=== PATIENT | male | born 1935 | race Hispanic/Latino ===

== ENCOUNTER 2016-04-03 15:13 | Outpatient (CLI) | payer MEDICARE, OTHER ==
--- NOTE | 2016-04-09 12:45 | XRay Report ---
Chest 2 views. Findings: The heart and ulnar vessels are normal. Minimal increased markings are seen in the retrocardiac region of the left lower lobe; otherwise the lungs are clear. Post CABG changes are noted. Impression: Possible small left lower lobe infiltrate.
== END 2016-04-03 15:14 | disposition home or self-care (01) ==
LOC: SPVIMAG 15:13
PROVIDERS: ATTEND Internal Medicine
DX: J15.9 Unspecified bacterial pneumonia (principal)
CPT/HCPCS: 71020

== ENCOUNTER 2016-06-06 10:32 | Day surgery (SDC) | payer MEDICARE, OTHER ==
[~2016-06-06 10:32] MED LIST: IOPIDINE OD ONE; IOPIDINE ONE; MYDRIACYL OD ONE; MYDRIACYL ONE; NEOFRIN OD ONE; NEOFRIN ONE
[2016-06-06 11:05] VITALS: BP 104/56
[2016-06-06] MEDS ORDERED: NEOFRIN OD ONE (12:08)
[2016-06-06] MEDS ORDERED: IOPIDINE OD ONE (12:08)
[2016-06-06] MEDS ORDERED: MYDRIACYL OD ONE (12:08)
== END 2016-06-06 10:33 | disposition home or self-care (01) ==
LOC: OR 10:32
PROVIDERS: ATTEND Specialist
DX: H26.491 Other secondary cataract, right eye (principal)

== ENCOUNTER 2016-06-13 11:05 | Day surgery (SDC) | payer MEDICARE, OTHER ==
[~2016-06-13 11:05] MED LIST changes: -IOPIDINE OD ONE; +IOPIDINE OS ONE; -MYDRIACYL OD ONE; +MYDRIACYL OS ONE; -NEOFRIN OD ONE; +NEOFRIN OS ONE
[2016-06-13] MEDS ORDERED: MYDRIACYL OS ONE (11:45)
[2016-06-13] MEDS ORDERED: IOPIDINE OS ONE (11:45)
[2016-06-13] MEDS ORDERED: NEOFRIN OS ONE (11:45)
[2016-06-13 12:02] VITALS: BP 110/60
== END 2016-06-13 12:32 | disposition home or self-care (01) ==
LOC: OR 11:05
PROVIDERS: ATTEND Specialist
DX: H26.492 Other secondary cataract, left eye (principal)

== ENCOUNTER 2016-07-03 06:20 | Day surgery (SDC) | payer MEDICARE, OTHER ==
[2016-07-03 09:52] VITALS: BP 127/64
[2016-07-03 10:57] LABS: Calcium 9.2 mg/dL (8.4-10.2)
[2016-07-03] MEDS ORDERED: RECLAST IV ONE (11:00)
== END 2016-07-03 11:00 | disposition home or self-care (01) ==
LOC: OPU 06:20 → EDSTATUS 06:30 → OPU 11:00
PROVIDERS: ATTEND Specialist
DX: M81.0 Age-related osteoporosis without current pathological fracture (principal)
CPT/HCPCS: 36415; 82310; 82565; 96365; J3489

== ENCOUNTER 2016-10-22 09:41 | Outpatient (CLI) | payer MEDICARE, OTHER ==
--- NOTE | 2016-10-22 10:54 | Mammography Report ---
BILATERAL DIGITAL DIAGNOSTIC MAMMOGRAM with CAD and BILATERAL BREAST ULTRASOUND: 10/22/16 CLINICAL: 80-year-old male with swelling of the upper outer left breast. COMPARISON:None. FINDINGS: Relatively fatty breasts.Mild bilateral subareolar fibroglandular densities. No mass, architectural distortion or suspicious calcifications. Ultrasound of of both breasts (including all four quadrants and the retroareolar area of each breast) was performed and demonstrated minimal subareolar fibroglandular densities. No mass, cyst or shadowing. IMPRESSION: Very mild bilateral gynecomastia.No mass. BI-RADS CATEGORY: 2 -- Benign RECOMMENDATION: Clinical follow-up. COMMENT: Patient follow-up letters are generated by our [employer] application.
== END 2016-10-22 09:42 | disposition home or self-care (01) ==
LOC: SPVWC 09:41
PROVIDERS: ATTEND Surgery
DX: N63 Unspecified lump in breast (principal); N62 Hypertrophy of breast; I11.0 Hypertensive heart disease with heart failure; I50.9 Heart failure, unspecified
CPT/HCPCS: 76641; G0204; 77066

== ENCOUNTER 2017-04-28 07:12 | Day surgery (SDC) | payer MEDICARE, OTHER ==
[~2017-04-28 07:12] MED LIST changes: +ANCEF/STERILE WATER 2 GM/20 ML 2 GM/20 ML SYRINGE IV NR; -IOPIDINE ONE; -IOPIDINE OS ONE; -MYDRIACYL ONE; -MYDRIACYL OS ONE; -NEOFRIN ONE; -NEOFRIN OS ONE
[2017-04-28] MEDS ORDERED: NACL BACTERIOSTATIC INFILTRATI ONE (07:55)
--- NOTE | 2017-04-28 08:12 | Anesthesia Consultation ---
Anesthesia Consult and Med Hx Date of service: 04/28/17 - Airway Anesthetic Teeth Evaluation: Good ROM Head & Neck: Adequate Mental/Hyoid Distance: Adequate Mallampati Class: Class I Intubation Access Assessment: Good - Pulmonary Exam CTA: Yes - Cardiac Exam Cardiac Exam: RRR - Pre-Operative Health Status ASA Pre-Surgery Classification: ASA3 Proposed Anesthetic Plan: General - Pre-Anesthesia Comment Pre-Anesthesia Comments: high cholesterol. arthiritis. 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
--- NOTE | 2017-04-28 08:15 | Anesthesia Day of Surgery ---
Anesthesia Day of Surgery - Day of Surgery Patient Examined: Yes Patient H&P Reviewed: Yes Patient is NPO: Yes Beta Blockers: Yes Cardiac Clearance: Yes
[2017-04-28 08:39] LABS: Basophils % (Auto) 0.7 % (0.0-1.8); Eosinophils # (Auto) 0.2 K/mm3 (0.0-0.4); Eosinophils % (Auto) 3.5 % (0.0-4.3); Hemoglobin 14.7 gm/dl (11.8-15.2); Lymphocytes # (Auto) 1.8 K/mm3 (1.2-5.4); Lymphocytes % (Auto) 27.1 % (13.4-35.0); Mean Corpuscular HGB Conc 35 % (32-34); Mean Corpuscular Hemoglobin 33 pg (28-32); Mean Corpuscular Volume 94 fl (84-94); Monocytes # (Auto) 0.7 K/mm3 (0.0-0.8); Monocytes % (Auto) 10.3 % (0.0-7.3); Platelet Count 132 K/mm3 (140-440); Red Blood Count 4.48 M/mm3 (3.65-5.03); Red Cell Distribution Width 13.5 % (13.2-15.2)
[2017-04-28 08:53] LABS: Calcium 9.1 mg/dL (8.4-10.2)
[2017-04-28] MEDS ORDERED: PEPCID PO NR (09:00)
[2017-04-28] MEDS ORDERED: ANCEF/STERILE WATER 2 GM/20 ML 2 GM/20 ML SYRINGE IV NR (09:00)
[2017-04-28] MEDS ORDERED: NACL 0.9% 1000 ML 1,000 ML IV SCH (09:00)
[2017-04-28] MEDS ORDERED: ZOFRAN ONE (10:40)
[2017-04-28] MEDS ORDERED: SUBLIMAZE ONE (10:41)
[2017-04-28] MEDS ORDERED: DIPRIVAN 10 MG/ML IV ONE (10:41)
[2017-04-28] MEDS ORDERED: GARAMYCIN IV ONE (10:59)
[2017-04-28] MEDS ORDERED: NACL 0.9% IR ONE (10:59)
[2017-04-28] MEDS ORDERED: WATER FOR IRRIG STERILE IR ONE ×2 (10:59)
[2017-04-28] MEDS ORDERED: XYLOCAINE MPF 2% ONE (11:00)
[2017-04-28] MEDS ORDERED: LASIX ONE (11:00)
[2017-04-28] MEDS ORDERED: NEO SYNEPHRINE/NS Syringe(OR USE) IV ONE (11:00)
[2017-04-28] MEDS ORDERED: ePHEDrine SULFATE ONE ×2 (11:16→11:54)
[2017-04-28] MEDS ORDERED: GARAMYCIN ONE (11:38)
--- NOTE | 2017-04-28 12:14 | Post Operative Note ---
Date of procedure: 04/28/17 Pre-op diagnosis: ca prostate Post-op diagnosis: same Findings: as above Procedure: cysto cryo ablation prostate Anesthesia: GETA Surgeon: EMMANUEL DOUGLAS Estimated blood loss: minimal Pathology: none Condition: stable Disposition: PACU
--- NOTE | 2017-04-28 12:16 | Discharge Summary ---
Short Stay Discharge Plan Activity: other (no straining) Weight Bearing Status: Full Weight Bearing Diet: low fat, low salt Wound: open to air, other (ice packs in rr and 24 hrs post op ) Special Instructions: other (inc fluids teach olsen care ) Durable Medical Equipment Needed Upon Discharge: other (olsen) Follow up with: MICHELET DORADO MD [Primary Care Provider] - 7 Days EMMANUEL DOUGLAS MD [Staff Physician] - 7 Days
--- NOTE | 2017-04-28 13:00 | Operative Report ---
PREOPERATIVE DIAGNOSIS: Adenocarcinoma of the prostate localized. POSTOPERATIVE DIAGNOSES: Adenocarcinoma of the prostate localized. PROCEDURE: Cystoscopy, cryoablation of prostate, focusing left lobe. SURGEON: Ajith Bass MD ANESTHESIA: General. FINDINGS: This is a gentleman with prostate cancer. All the options were given to him. His has had cryoablation for her kidney. He now presents for surgery. All risks and complications discussed. DESCRIPTION OF PROCEDURE: The patient brought to the operating room and placed on the operating table. Following induction of anesthesia, placed in lithotomy position, prepped and draped in usual sterile fashion. Baxter catheter was inserted. The ultrasound probe was placed and we had a good image of the prostate. The prostate measured approximately 24-25 grams. Again, we focused on the left lobe. At this point, when the catheter was in, we tested all the probes which were excellent and placed probes 1 and 2 in position. Denonvilliers' fascia was in. There was a good amount of space between the prostate and the rectum. We expected the Denonvilliers' to be a slightly warmer, so we would have to watch the ultrasound because there was ____ space. At this point, external sphincter probe was placed and then probes 5 and 6 and then 3 and 4. Excellent visualization was achieved. The probes were checked in multiple planes and we had to take probes 1 and 2 to 3 cm and the rest to 3.5 cm. At this point, cystoscopy showed no urethral damage, bladder damage. A wire was placed and the warmer which was checked multiple times, was placed in the bladder under ultrasound guidance. At this point, the probes were checked once again and freeze was carried out approximately 8-9 minutes and we watched the ice ball freeze from anterior to posterior without difficulty. Then, dropped to about 9 degrees, but we knew it would be warmer than what we saw because we saw an amazing a well-developed ice ball. At this point, a full flow was carried out. Second freeze was carried in a symmetrical fashion after we rechecked the probes to be sure that it did not migrate. The patient tolerated the procedure well. Pressure dressing was left until there was no bleeding brought to recovery room with a 20-[place]i Baxter. Family notified in stable condition. JOB# [id number] PRINCE/YVONNE
[2017-04-28 14:17] VITALS: BP 159/84
--- NOTE | 2017-04-28 15:25 | Post Anesthesia Evaluation ---
- Post Anesthesia Evaluation Patient Participated: Yes Airway Patent: Yes Stable Respiratory Function: Yes Nausea/Vomiting: No Temp > 96.8F: Yes Pain Manageable: Yes Adequeate Hydration: Yes Anesthesia Complications: No
== END 2017-04-28 15:00 | disposition home or self-care (01) ==
LOC: OR 07:12
PROVIDERS: ATTEND Urology
DX: C61 Malignant neoplasm of prostate (principal); I10 Essential (primary) hypertension; I25.10 Atherosclerotic heart disease of native coronary artery without angina pectoris; I25.2 Old myocardial infarction; I73.9 Peripheral vascular disease, unspecified; J44.9 Chronic obstructive pulmonary disease, unspecified; M19.90 Unspecified osteoarthritis, unspecified site; K21.9 Gastro-esophageal reflux disease without esophagitis; Z90.49 Acquired absence of other specified parts of digestive tract; Z98.890 Other specified postprocedural states; Z95.5 Presence of coronary angioplasty implant and graft; Z85.46 Personal history of malignant neoplasm of prostate; Z90.5 Acquired absence of kidney; Z86.73 Personal history of transient ischemic attack (TIA), and cerebral infarction without residual deficits
CPT/HCPCS: 36415; 55873; 80048; 85025; A4217; C2618; J0690; J1580; J1940; J2370; J2405; J2704; J3010; J7030

== ENCOUNTER 2018-07-10 09:28 | Outpatient (CLI) | payer MEDICARE, OTHER ==
--- NOTE | 2018-07-10 10:26 | XRay Report ---
RIGHT CLAVICLE TWO VIEWS: 07/10/18 09:28:00 CLINICAL: Pain and lump. FINDINGS: The clavicle is intact with no fracture or dislocation.Normal acromioclavicular joint. The sternoclavicular joint is not optimally imaged. Mild glenohumeral joint arthritis and a fixation screw in the humeral head. Normal soft tissues. IMPRESSION: Normal clavicle. Status post rotator cuff repair. Mild glenohumeral joint arthritis.
== END 2018-07-10 09:29 | disposition home or self-care (01) ==
LOC: SPVIMAG 09:28
PROVIDERS: ATTEND Internal Medicine
DX: M19.011 Primary osteoarthritis, right shoulder (principal); E78.5 Hyperlipidemia, unspecified; I10 Essential (primary) hypertension; E78.00 Pure hypercholesterolemia, unspecified; J44.9 Chronic obstructive pulmonary disease, unspecified; K21.9 Gastro-esophageal reflux disease without esophagitis

== ENCOUNTER 2018-10-21 09:50 | Outpatient (CLI) | payer MEDICARE, OTHER ==
--- NOTE | 2018-10-21 12:41 | Cat Scan Report ---
CT ABDOMEN AND PELVIS WITHOUT CONTRAST HISTORY: COLON CANCER SCREENING(V76.51) [employer] COMPARISON: 09/06/2015 TECHNIQUE: Axial CT images were obtained through the abdomen and pelvis without IV contrast. Sagittal and coronal reformatted images. All CT scans at this location are performed using CT dose reduction for ALARA by means of automated exposure control. FINDINGS: CT ABDOMEN: Lung Bases: Chronic interstitial changes are noted at the lung bases. No nodule, infiltrate or pleura l fluid. Heart size is borderline with coronary artery calcifications. Liver: No significant abnormality. Biliary: Cholecystectomy. Spleen: No significant abnormality. Unenlarged. Pancreas: No significant abnormality. Adrenals: No significant abnormality. Kidneys: Stable left nephrectomy changes since the previous exam. The right kidney is normal size and position. A 2.8 x 2.1 cm cyst near the inferior pole of the right kidney appears stable. Minor rim c alcifications are noted in the cyst. The right ureter is normal course and caliber. Lymphatics: No lymphadenopathy. Vasculature: Moderate diffuse aortic and iliac calcifications are noted. No aneurysm. Bowel/Peritoneum: Oral contrast is present in the stomach and small bowel. There is moderate stool th roughout the length of the colon. No obvious colonic mass is identified. No inflammatory changes or o bstruction. Normal appendix. CT PELVIS: : The bladder is unremarkable. No pelvic cyst, mass or adenopathy. Osseous Structures: Mild osteopenia and diffuse degenerative changes throughout the spine are identif ied. No suspicious bony lesion or fracture. Additional Findings: None IMPRESSION: No obvious colonic mass or evidence for metastasis. Stable left nephrectomy changes. Atherosclerotic disease. Cholecystectomy. Osteopenia and degenerative changes in the spine. Signer Name: Charli Ojeda Jr, MD Signed: 10/21/2018 12:37 PM Workstation Name: [id number]
== END 2018-10-21 09:51 | disposition home or self-care (01) ==
LOC: CT 09:50
PROVIDERS: ATTEND Internal Medicine
DX: Z12.11 Encounter for screening for malignant neoplasm of colon (principal); Z85.528 Personal history of other malignant neoplasm of kidney
CPT/HCPCS: 74176

== ENCOUNTER 2019-01-18 11:12 | Outpatient (CLI) | payer MEDICARE, OTHER ==
--- NOTE | 2019-01-18 13:34 | XRay Report ---
CHEST 2 VIEWS INDICATION / CLINICAL INFORMATION: EXERTIONAL DYSPNEA. COMPARISON: Chest x-ray on 04/03/2016 FINDINGS: SUPPORT DEVICES: None. HEART / MEDIASTINUM: Stable postsurgical changes from median sternotomy and CABG. Stable normal heart size. LUNGS / PLEURA: No significant pulmonary or pleural abnormality. No pneumothorax. ADDITIONAL FINDINGS: No significant additional findings. IMPRESSION: 1. No acute findings. No significant change from the prior study. Signer Name: Artemio Sheppard MD Signed: 01/18/2019 1:29 PM Workstation Name: [id number]
== END 2019-01-18 11:13 | disposition home or self-care (01) ==
LOC: SPVIMAG 11:12
PROVIDERS: ATTEND Internal Medicine Cardiovascular Disease
DX: R06.09 Other forms of dyspnea (principal); Z95.1 Presence of aortocoronary bypass graft
CPT/HCPCS: 71046

== ENCOUNTER 2019-01-25 15:23 | Outpatient (CLI) | payer MEDICARE, OTHER ==
--- NOTE | 2019-01-25 16:44 | XRay Report ---
STERNOCLAVICULAR JOINTS 3 VIEWS INDICATION / CLINICAL INFORMATION: ARTHRITIS OF RIGHT STERNOCLAVICULAR JOINT COMPARISON: Chest radiograph 01/18/2019, clavicle radiograph 07/10/2018 FINDINGS: No acute abnormality. Mild to moderate degenerative changes with spurring at the proximal ends of the clavicles. Appearance is unchanged from previous exams. No bony resorption or destructive change is evident. Signer Name: Young Soria MD Signed: 01/25/2019 4:40 PM Workstation Name: [id number]
== END 2019-01-25 15:24 | disposition home or self-care (01) ==
LOC: SPVIMAG 15:23
PROVIDERS: ATTEND Internal Medicine
DX: M19.011 Primary osteoarthritis, right shoulder (principal)
CPT/HCPCS: 71130

== ENCOUNTER 2019-02-26 14:29 | Outpatient (CLI) | payer MEDICARE, OTHER ==
--- NOTE | 2019-02-26 15:36 | XRay Report ---
CHEST 2 VIEWS INDICATION / CLINICAL INFORMATION: DYSPNEA ON EXERTION R06.09. COMPARISON: Chest x-ray 01/18/2019 FINDINGS: SUPPORT DEVICES: None. HEART / MEDIASTINUM: Sternotomy and CABG again noted. Heart is normal in size. LUNGS / PLEURA: No significant pulmonary or pleural abnormality. No pneumothorax. ADDITIONAL FINDINGS: No significant additional findings. IMPRESSION: 1. No acute findings. Previous CABG Signer Name: Luan Mcmullen MD Signed: 02/26/2019 3:31 PM Workstation Name: [id number]
== END 2019-02-26 14:30 | disposition home or self-care (01) ==
LOC: SPVIMAG 14:29
PROVIDERS: ATTEND Internal Medicine
DX: R06.09 Other forms of dyspnea (principal)
CPT/HCPCS: 71046

== ENCOUNTER 2020-10-04 11:56 | Outpatient (CLI) | payer MEDICARE, OTHER ==
--- NOTE | 2020-10-04 13:14 | XRay Report ---
CHEST 2 VIEWS INDICATION / CLINICAL INFORMATION: DYSPNEA ON EXERTION. COMPARISON: 02/26/2019 chest x-ray FINDINGS: SUPPORT DEVICES: None. HEART / MEDIASTINUM: Normal heart size with previous median sternotomy and CABG. LUNGS / PLEURA: No acute findings. Stable scattered calcified granulomata. ADDITIONAL FINDINGS: No significant additional findings. IMPRESSION: 1. No acute findings. Signer Name: Artemio Sheppard MD Signed: 10/04/2020 1:10 PM Workstation Name: [id number]
== END 2020-10-04 11:57 | disposition home or self-care (01) ==
LOC: SPVIMAG 11:56
PROVIDERS: ATTEND Internal Medicine
DX: R06.00 Dyspnea, unspecified (principal)
CPT/HCPCS: 71046